=== PATIENT | male | born 1975 ===

== ENCOUNTER 2017-12-10 20:14 | Observation (INO) | payer BC, OTHER ==
[2017-12-10 20:19] VITALS: BMI 29.5
[2017-12-10] MEDS ORDERED: Albuterol-Ipratrop 3 mg / 0.5 (3 ml) UD ONE (20:21)
[2017-12-10] MEDS ORDERED: Albuterol-Ipratrop 3 mg / 0.5 (3 ml) UD IH STA ×3 (20:27)
[2017-12-10] MEDS ORDERED: Magnesium Sulfate 2 gm/50 ml 2 GM/50 ML BAG IVPB ONE (21:47)
[2017-12-10 22:09] LABS: ALB/GLOB RATIO 1.4 (1.1-1.8); ALBUMIN 4.6 g/dL (3.0-4.8); BLOOD UREA NITROGEN 19 mg/dL (7-21); CALCIUM 9.8 mg/dL (8.4-10.5); GFR NON-AFRICAN AMERICAN > 60
[2017-12-10 22:13] LABS: BASO # 0.02 K/mm3 (0.0-2.0); BASO % 0.2 % (0.0-3.0); EOS # 0.1 (0.0-0.7); EOS % 1.3 % (1.5-5.0); GRAN # 5.65 (1.4-6.5); GRAN % 65.3 % (50.0-68.0); LYMPH # 2.2 (1.2-3.4); LYMPH % 25.1 % (22.0-35.0); MEAN CELL VOLUME 84.3 fl (80.0-105.0); MEAN CORPUSCULAR HEMOGLOBIN 29.9 pg (25.0-35.0); MEAN CORPUSCULAR HGB CONC 35.5 g/dl (31.0-37.0); MONO # 0.7 (0.1-0.6); MONO % 8.1 % (1.0-6.0); RBC 5.35 10^6/uL (3.5-6.1); RED CELL DISTRIBUTION WIDTH 13.2 % (11.5-14.5); WHITE BLOOD COUNT 8.7 10^3/ul (4.5-11.0)
[2017-12-10] MEDS ORDERED: Albuterol-Ipratrop 3 mg / 0.5 (3 ml) UD IH PRN (22:17)
--- NOTE | 2017-12-10 22:17 | ED PDOC ---
Arrival/HPI - General Historian: Patient - History of Present Illness Narrative History of Present Illness (Text): 42 year old male, whose past medical history includes asthma, who presents to the ED today with worsening asthma exacerbation. Patient states while walking, he became more short of breath and developed diffuse wheezing. Patient states he tried to used his inhaler pump while walking, with no significant improvement in his symptoms. Patient states he has been feeling like this intermittently over the past month and has been to the hospital twice already for similar asthma exacerbation. Patient reports occasional cough. Patient denies any fever, chills, chest pain, abdominal pain, nausea, vomiting, URI symptoms, or any other complaints. Symptom Onset: Gradual Symptom Course: Intermittent, Worsening Activities at Onset: Light Context: Home <Kati Casiano - Last Filed: 12/11/17 00:48> <Sam Shay - Last Filed: 12/11/17 01:25> - General Chief Complaint: Respiratory Distress Time Seen by Provider: 12/10/17 20:27 Past Medical History - Provider Review Nursing Documentation Reviewed: Yes - Past Medical History Past Medical History: No Previous - Cardiac Hx Cardiac Disorders: No - Pulmonary Hx Asthma: Yes - Neurological Hx Neurological Disorder: No - HEENT Hx HEENT Disorder: No - Renal Hx Renal Disorder: No - Endocrine/Metabolic Hx Endocrine Disorders: No - Hematological/Oncological Hx Blood Disorders: No - Musculoskeletal/Rheumatological Hx Musculoskeletal Disorders: No - Gastrointestinal Hx Gastrointestinal Disorders: No - Genitourinary/Gynecological Hx Genitourinary Disorders: No - Psychiatric Hx Depression: No Hx Emotional Abuse: No Hx Physical Abuse: No Hx Substance Use: No - Surgical History Hx Appendectomy: Yes Hx Orthopedic Surgery: Yes (LEFT KNEE acl repair) Hx Tonsillectomy: Yes - Anesthesia Hx Anesthesia: Yes Hx Anesthesia Reactions: No Hx Malignant Hyperthermia: No - Suicidal Assessment Feels Threatened In Home Enviroment: No <Kati Casiano - Last Filed: 12/11/17 00:48> Family/Social History - Physician Review Nursing Documentation Reviewed: Yes Family/Social History: Unknown Family HX Smoking Status: Never Smoked Hx Alcohol Use: No Hx Substance Use: No Hx Substance Use Treatment: No <Kati Casiano Last Filed: 12/11/17 00:48> Allergies/Home Meds <Kati Casiano Last Filed: 12/11/17 00:48> <LauritaSam potts - Last Filed: 12/11/17 01:25> Allergies/Adverse Reactions: Allergies No Known Allergies Allergy (Verified 12/10/17 20:19) Review of Systems - Physician Review All systems were reviewed & negative as marked: Yes - Review of Systems Constitutional: Normal. absent: Fevers Eyes: Normal ENT: Normal Respiratory: SOB, Cough, Wheezing Cardiovascular: Normal. absent: Chest Pain Gastrointestinal: Normal. absent: Abdominal Pain, Diarrhea, Nausea, Vomiting Genitourinary Male: Normal. absent: Dysuria, Frequency, Hematuria Musculoskeletal: Normal. absent: Back Pain, Neck Pain Skin: Normal Neurological: Normal Endocrine: Normal Hemo/Lymphatic: Normal Psychiatric: Normal <Kati Casiano - Last Filed: 12/11/17 00:48> Physical Exam Vital Signs Reviewed: Yes Vital Signs Temp Pulse Resp BP Pulse Ox 12/10/17 20:19 98.0 F 99 H 20 135/77 98 Temperature: Afebrile Blood Pressure: Normal Pulse: Regular Respiratory Rate: Tachypneic Appearance: Positive for: Well-Appearing Pain Distress: None Mental Status: Positive for: Alert and Oriented X 3, other (Speaking full sentences) - Systems Exam Head: Present: Atraumatic, Normocephalic Pupils: Present: PERRL Extroacular Muscles: Present: EOMI Conjunctiva: Present: Normal Mouth: Present: Moist Mucous Membranes Neck: Present: Normal Range of Motion Respiratory/Chest: Present: Wheezes (Diffuse wheezing bilaterally), Tachypneic. No: Respiratory Distress, Accessory Muscle Use Cardiovascular: Present: Regular Rate and Rhythm, Normal S1, S2. No: Murmurs Abdomen: No: Tenderness, Distention, Peritoneal Signs Back: Present: Normal Inspection Upper Extremity: Present: Normal Inspection. No: Cyanosis, Edema Lower Extremity: Present: Normal Inspection. No: Edema Neurological: Present: GCS=15, CN II-XII Intact, Speech Normal Skin: Present: Warm, Dry, Normal Color. No: Rashes Psychiatric: Present: Alert, Oriented x 3, Normal Insight, Normal Concentration <Kati Casiano - Last Filed: 12/11/17 00:48> Vital Signs Temp Pulse Resp BP Pulse Ox 12/11/17 00:54 99 H 18 101/65 94 L 12/11/17 00:00 98 H 18 104/54 L 95 12/10/17 22:14 100 H 18 115/65 94 L 12/10/17 21:48 20 12/10/17 20:19 98.0 F 99 H 20 135/77 98 <LauritaSam - Last Filed: 12/11/17 01:25> Medical Decision Making ED Course and Treatment: Impression: 42 year old male c/o shortness of breath, wheezing, and occasional cough, similar to prior asthma exacerbations. Plan: -- EKG -- CXR -- CBC, CMP -- Duoneb -- Magnesium Sulfate -- Solu-medrol -- Peak Flow Progress Notes: pt given 3 duonebs, solumed and magnesium; still c/o slight shortness of breath, but feeling much better compared to time of arrival. cxr; no infiltrate. ekg; NSR at 93b/m no st elevations. normal axis case discussed with dr. gutierrez; will admit for asthma exacerbation pt reassessment; pt feeling better; agrees to stay in er. still with wheezing bilaterally; greatly improved. speaking in full sentences. peak flow; 500. vitals stable. impression; asthma exacerbation admit observational status. - Lab Interpretations Lab Results: 12/10/17 21:55 Lab Results 12/10/17 21:55: Sodium Pending, Potassium Pending, Chloride Pending, Carbon Dioxide Pending, Anion Gap Pending, BUN 19, Creatinine 1.0, Est GFR ( Amer) > 60, Est GFR (Non-Af Amer) > 60, Random Glucose 91, Calcium 9.8, Total Bilirubin 0.7, AST Pending, ALT Pending, Alkaline Phosphatase Pending, Total P rotein 8.0, Albumin 4.6, Globulin 3.4, Albumin/Globulin Ratio 1.4 - RAD Interpretation Radiology Orders: 12/10/17 20:28 CHEST PORTABLE [RAD] Stat - Medication Orders Current Medication Orders: Magnesium Sulfate (Magnesium Sulfate 2 Gm/50 Ml Water) 2 gm in 50 mls @ 50 mls/hr IVPB ONCE ONE Stop: 12/10/17 22:46 Last Admin: 12/10/17 22:05 Dose: 50 mls/hr eMAR Start Stop Document 12/10/17 22:05 JOL (Rec: 12/10/17 22:05 [facility] [id number]) Intravenous Solution Start Date 12/10/17 Start Time 22:05 End Date 12/10/17 End time 23:05 Total Infusion Time 60 Discontinued Medications Albuterol/Ipratropium (Duoneb 3 Mg/0.5 Mg (3 Ml) Ud) 3 ml IH STAT STA Stop: 12/10/17 20:28 Last Admin: 12/10/17 20:25 Dose: 3 ml Albuterol/Ipratropium (Duoneb 3 Mg/0.5 Mg (3 Ml) Ud) 3 ml IH STAT STA Stop: 12/10/17 20:28 Last Admin: 12/10/17 20:15 Dose: 3 ml Albuterol/Ipratropium (Duoneb 3 Mg/0.5 Mg (3 Ml) Ud) 3 ml IH STAT STA Stop: 12/10/17 20:28 Last Admin: 12/10/17 20:39 Dose: 3 ml Methylprednisolone (Solu-Medrol) 125 mg IVP STAT STA Stop: 12/10/17 20:28 Last Admin: 12/10/17 20:38 Dose: 125 mg IVP Administration Document 12/10/17 20:38 [facility] (Rec: 12/10/17 20:38 [facility] [id number]) Charges for Administration # of IVP Administrations 1 <Kati Casiano T - Last Filed: 12/11/17 00:48> - Lab Interpretations Lab Results: 12/10/17 21:55 12/10/17 21:55 Lab Results 12/10/17 21:55: WBC 8.7, RBC 5.35, Hgb 16.0, Hct 45.1, MCV 84.3, MCH 29.9, MCHC 35.5, RDW 13.2, Plt Count 211, MPV 10.0, Gran % 65.3, Lymph % (Auto) 25.1, Stevens % (Auto) 8.1 H, Eos % (Auto) 1.3 L, Baso % (Auto) 0.2, Gran # 5.65, Lymph # (Auto) 2.2, Stevens # (Auto) 0.7 H, Eos # (Auto) 0.1, Baso # (Auto) 0.02 12/10/17 21:55: Sodium 140, Potassium 3.9, Chloride 104, Carbon Dioxide 27, Anion Gap 14, BUN 19, Creatinine 1.0, Est GFR ( Amer) > 60, Est GFR (Non- Af Amer) > 60, Random Glucose 91, Calcium 9.8, Total Bilirubin 0.7, AST 41, ALT 37, Alkaline Phosphatase 65, Total Protein 8.0, Albumin 4.6, Globulin 3.4, Albumin/Globulin Ratio 1.4 - RAD Interpretation Radiology Orders: 12/10/17 20:28 CHEST PORTABLE [RAD] Stat - Medication Orders Current Medication Orders: Acetaminophen (Tylenol 325mg Tab) 650 mg PO Q6H PRN PRN Reason: Fever >100.4 F Albuterol/Ipratropium (Duoneb 3 Mg/0.5 Mg (3 Ml) Ud) 3 ml IH Q6H KERRI Albuterol/Ipratropium (Duoneb 3 Mg/0.5 Mg (3 Ml) Ud) 3 ml IH Q2H PRN PRN Reason: Shortness of Breath Methylprednisolone (Solu-Medrol) 40 mg IVP Q8H KERRI Last Admin: 12/10/17 22:28 Dose: Not Given Non-Admin Reason: pt just received 125mg IVP Oxycodone/Acetaminophen (Percocet 5/325 Mg Tab) 1 tab PO Q6H PRN PRN Reason: Pain, moderate (4-7) Stop: 12/13/17 22:31 Discontinued Medications Albuterol Sulfate (Albuterol 0.083% Inhal Angy (2.5 Mg/3 Ml) Ud) 2.5 mg IH STAT STA Stop: 12/11/17 00:31 Last Admin: 12/11/17 01:02 Dose: 2.5 mg Albuterol/Ipratropium (Duoneb 3 Mg/0.5 Mg (3 Ml) Ud) 3 ml IH STAT STA Stop: 12/10/17 20:28 Last Admin: 12/10/17 20:25 Dose: 3 ml Albuterol/Ipratropium (Duoneb 3 Mg/0.5 Mg (3 Ml) Ud) 3 ml IH STAT STA Stop: 12/10/17 20:28 Last Admin: 12/10/17 20:15 Dose: 3 ml Albuterol/Ipratropium (Duoneb 3 Mg/0.5 Mg (3 Ml) Ud) 3 ml IH STAT STA Stop: 12/10/17 20:28 Last Admin: 12/10/17 20:39 Dose: 3 ml Magnesium Sulfate (Magnesium Sulfate 2 Gm/50 Ml Water) 2 gm in 50 mls @ 50 mls/hr IVPB ONCE ONE Stop: 12/10/17 22:46 Last Admin: 12/10/17 22:05 Dose: 50 mls/hr eMAR Start Stop Document 12/10/17 22:05 JO (Rec: 12/10/17 22:05 [facility] [id number]) Intravenous Solution Start Date 12/10/17 Start Time 22:05 End Date 12/10/17 End time 23:05 Total Infusion Time 60 Methylprednisolone (Solu-Medrol) 125 mg IVP STAT STA Stop: 12/10/17 20:28 Last Admin: 12/10/17 20:38 Dose: 125 mg IVP Administration Document 12/10/17 20:38 JO (Rec: 12/10/17 20:38 [facility] [id number]) Charges for Administration # of IVP Administrations 1 <Sam Shay - Last Filed: 12/11/17 01:25> - Scribe Statement Nori Cr All medical record entries made by the Scribe were at my direction and personally dictated by me. I have reviewed the chart and agree that the record accurately reflects my personal performance of the history, physical exam, medical decision making, and the department course for this patient. I have also personally directed, reviewed, and agree with the discharge instructions and disposition. <Kati Casiano - Last Filed: 12/11/17 00:48> - PA / CERTIFIED PERSONAL CHEF / Resident Statement NALLELY has reviewed & agrees with the documentation as recorded. / has examined the patient and agrees with the treatment plan. <Sam Shay - Last Filed: 12/11/17 01:25> Disposition/Present on Arrival - Present on Arrival Any Indicators Present on Arrival: No History of DVT/PE: No History of Uncontrolled Diabetes: No Urinary Catheter: No History of Decub. Ulcer: No History Surgical Site Infection Following: None - Disposition Have Diagnosis and Disposition been Completed?: Yes Disposition Time: 22:15 Patient Plan: Observation <Kati Casiano - Last Filed: 12/11/17 00:48> <Sam Shay - Last Filed: 12/11/17 01:25> - Disposition Diagnosis: Asthma exacerbation Disposition: HOSPITALIZED Patient Problems: Current Active Problems Problem Status Onset Asthma exacerbation Acute Condition: FAIR
[2017-12-10] MEDS ORDERED: Oxycodone/Acetaminophen 5/325 mg Tab PO PRN (22:19)
[2017-12-10 22:21] LABS: ALT/SGPT 37 U/L (7-56); AST/SGOT 41 U/L (17-59)
[2017-12-10] MEDS: MethylPREDNISolone 40 mg Vial IVP SCH (22:28)
[2017-12-10] MEDS ORDERED: Albuterol-Ipratrop 3 mg / 0.5 (3 ml) UD IH SCH (22:30)
[2017-12-11] MEDS ORDERED: Albuterol 0.083% Inhal Sol (2.5 mg/3 mL) UD IH STA (00:30)
[2017-12-11] MEDS: MethylPREDNISolone 40 mg Vial IVP SCH ×3 (05:49→21:29)
--- NOTE | 2017-12-11 09:55 | RAD ---
Date of service: 12/10/2017 HISTORY: asthma COMPARISON: No prior. FINDINGS: LUNGS: No active pulmonary disease. PLEURA: No significant pleural effusion identified, no pneumothorax apparent. CARDIOVASCULAR: No aortic atherosclerotic calcification present OSSEOUS STRUCTURES: No significant abnormalities. VISUALIZED UPPER ABDOMEN: Normal. OTHER FINDINGS: None. IMPRESSION: No acute cardiopulmonary disease appreciated.
--- NOTE | 2017-12-11 10:25 | CARD ---
APPROVED REPORT Date of service: 12/11/2017 EKG Measurement Heart [id number] OR [id number] <Conclusion> Normal sinus rhythm STTW changes c/w ischemia LVH by voltage
[2017-12-11] MEDS ORDERED: Albuterol-Ipratrop 3 mg / 0.5 (3 ml) UD IH PRN (12:45)
[2017-12-11] MEDS: Albuterol-Ipratrop 3 mg / 0.5 (3 ml) UD IH SCH ×2 (13:26→19:47)
[2017-12-11] MEDS: Azithromycin 500MG/NS 250ml 500 MG/250 ML BAG IVPB SCH (13:33)
[2017-12-11] MEDS: cefTRIAXone 1 gm 1 GM/100 ML BAG IVPB SCH (13:33)
--- NOTE | 2017-12-11 19:56 | HP ---
DATE OF EXAM: 12/10/2017 HISTORY OF PRESENT ILLNESS: The patient is a 42-year-old male who has history of asthma. The patient of Dr. Tom Newton, covering for him. Came to emergency room because of increasing cough, congestion, and shortness of breath. He states he has been using his inhaler with no significant relief, so he came to ER. He was densely wheezing bilaterally, so he was placed on observation for further management. PAST MEDICAL HISTORY: Significant for chronic back pain and asthma. ALLERGIES: HE IS NOT ALLERGIC TO ANY MEDICATIONS. MEDICATIONS: At home, he uses ProAir, Breo, and he uses Vicoprofen for his back pain. PAST SURGICAL HISTORY: Significant for tonsillectomy and appendectomy. SOCIAL HISTORY: He is single. He works as a dispatcher and he denies smoking and drinking alcohol use, only drinks socially. PHYSICAL EXAMINATION GENERAL: He is awake, alert, oriented, and communicative. VITAL SIGNS: He is afebrile. Pulse 96, respirations 20, blood pressure . LUNGS: Bilateral expiratory rhonchi. HEART: S1, S2 audible. ABDOMEN: Soft, nontender. No rebound and no guarding. NEUROLOGIC: The patient is awake, alert, oriented, and communicative. LABORATORY DATA: WBC 8.7, hemoglobin 16, hematocrit 45, platelets of 211. Chemistry: Sodium 140, potassium 3.9, chloride 104, CO2 of 27, BUN 19, creatinine 1.0. Blood sugar 91. LFTs are within normal limits. ASSESSMENT: 1. Asthma exacerbation, acute on chronic. 2. Chronic back pain. PLAN: We will continue the patient on nebulizer treatment. We will start him on Zithromax and Rocephin. We will watch him another 24 hours and possible discharge in the a.m., if he continues to improve. Mary Jane Crespo MD
[2017-12-11 22:55] VITALS: BP 106/59; PULSE 110; RESP 18; TEMP 97.6; O2SAT 94
[2017-12-12] MEDS: Albuterol-Ipratrop 3 mg / 0.5 (3 ml) UD IH SCH ×2 (01:40→07:18)
[2017-12-12] MEDS: MethylPREDNISolone 40 mg Vial IVP SCH (06:10)
[2017-12-12] MEDS: cefTRIAXone 1 gm 1 GM/100 ML BAG IVPB SCH (10:25)
[2017-12-12] MEDS: Azithromycin 500MG/NS 250ml 500 MG/250 ML BAG IVPB SCH (10:26)
--- NOTE | 2017-12-13 09:06 | DS ---
HISTORY OF PRESENT ILLNESS: The patient is 42 years old, seen and examined doing well. He was admitted with asthma exacerbation with dense bilateral wheezing. The patient of Dr. Newton. The patient is doing well and being discharged today. PHYSICAL EXAMINATION: GENERAL: He is awake, alert, oriented and communicative. VITAL SIGNS: He is afebrile, pulse 110, respirations 18 and blood pressure 106/56. LUNGS: Bilateral fair airflow. No rhonchi or crackle. HEART: S1 and S2 audible. ABDOMEN: Soft and nontender. No rebound. No guarding. NEUROLOGIC: He is awake, alert, oriented and communicative. ASSESSMENT: 1. Asthma exacerbation. 2. Bronchospasm. 3. Asthmatic bronchitis. PLAN: The patient is being discharged home on Levaquin 500 daily. He is given prednisone 20 mg twice a day for 5 days. He is given Singulair 10 mg daily and he will follow up with Dr. Tom Newton as outpatient. Mary Jane Crespo MD
== END 2017-12-12 12:59 | disposition home or self-care (01) ==
LOC: ED 20:14 → ERH 22:16 → 5RNO 12-11 03:01
PROVIDERS: ADMIT Internal Medicine; ATTEND Internal Medicine
DX: J45.901 Unspecified asthma with (acute) exacerbation (principal); G89.29 Other chronic pain; M54.9 Dorsalgia, unspecified
CPT/HCPCS: 71045; 80053; 85025; 93005; 94640; 96365; 96374; 99285; G0378; J0456; J0696; J2920; J2930